=== PATIENT | female | born 1940 | race Caucasian/White ===

== ENCOUNTER 2016-09-13 10:59 | Inpatient (IN) | payer OTHER ==
[~2016-09-13] VITALS: Ht 170.2 cm; Wt 102.1 kg
--- NOTE | ~2016-09-13 | 2DMMODE ---
[facility] [address] [facility] [place] [address] 2 D/M-MODE ECHOCARDIOGRAM Name: YAQUELIN SORTO Room #: 212-P ADM IN M.R.#: [id number] Admission: 09/13/16 Attend Phys: Wayne Giles Discharge: Date of : 36 Date of Service: 09/14/16 1239 Report #: [id number] THIS REPORT FOR: //name// APPROVED REPORT Study performed: 09/14/2016 11:28:28 EXAM: Comprehensive 2D, Doppler, and color-flow Echocardiogram Patient Location: Echo lab Room #: 212 Blood Pressure: 104/49 mmHg HR: 97 bpm Rhythm: Atrial Fibrillation Other Information Study Quality: Adequate Indications Atrial Fibrillation Chest Pain Hx: Afib, HLP, HTN 2D Dimensions RVDd: 44.62 mm LVEF(%): 53.45 (>50%) IVSd: 11.57 (7-11mm) LVOT Diam: 22.35 (18-24mm) LVDd: 41.85 mm PWd: 12.05 (7-11mm) Ascending Ao: 33.91 (22-36mm) LVDs: 30.44 (25-40mm) Aortic Root: 32.94 mm Aguilera's LVEF: 53.45 % Volumes Left Atrial Volume (Systole) Single Plane 4CH: 44.62 mL Single Plane 2CH: 86.98 mL LA ESV Index: 35.00 mL/m2 Aortic Valve AoV Peak Lai.: 1.18 m/s AO Peak Gr.: 5.58 mmHg LVOT Max P.23 mmHg LVOT Max V: 0.75 m/s VALE Vmax: 2.48 cm2 [facility] [place] [address] 2 D/M-MODE ECHOCARDIOGRAM Name: YAQUELIN SORTO Room #: 212-P [facility] IN [facility].#: [id number] Admission: 09/13/16 Attend Phys: Wayne Giles Discharge: Date of : 36 Date of Service: 09/14/16 1239 Report #: [id number] Mitral Valve MV Decel. Time: 119.43 ms MV E Max Lai.: 0.92 m/s IVRT: 78.43 ms Pulmonary Valve PV Peak Lai.: 0.66 m/s PV Peak Gr.: 1.75 mmHg Tricuspid Valve TR Peak Lai.: 2.72 m/s RAP Estimate: 5.00 mmHg TR Peak Gr.: 29.74 mmHg RVSP: 35.00 mmHg Left Ventricle The left ventricle is normal size. There is normal LV segmental wall motion. Mild concentric left ventricular hypertrophy. Left ventricular systolic function is normal. LVEF is 55%. This study is not technically sufficient to allow evaluation of the LV diastolic function due to atrial fibrillation. Right Ventricle Right ventricle is mildly dilated. The right ventricular systolic function is normal. Atria Left atrium is dilated. Right atrium is dilated. Aortic Valve Aortic valve is calcified. Mild aortic regurgitation. There is no aortic valvular stenosis. Mitral Valve Mitral valve leaflets are normal. Moderate mitral regurgitation. No evidence of mitral valve stenosis. Tricuspid Valve The tricuspid valve is normal in structure. There is mild to moderate tricuspid regurgitation. The right atrial pressure is estimated at 5 mmHg. There is mild pulmonary hypertension with an estimated PAP of 35mmHg. Pulmonic Valve The pulmonary valve is normal in structure. Trace pulmonic regurgitation. Great Vessels The aortic root is normal in size. The ascending aorta is normal in [facility] [address] [place] [address] 2 D/M-MODE ECHOCARDIOGRAM Name: YAQUELIN SORTO Room #: 212-P [facility] IN ..#: [id number] Admission: 09/13/16 Attend Phys: Wayne Giles Discharge: Date of : 36 Date of Service: 09/14/16 1239 Report #: [id number] size. IVC is normal in size and collapses >50% with inspiration. Pericardium There is no pericardial effusion. <Conclusion> Left ventricular systolic function is normal. There is normal LV segmental wall motion. LVEF 55%. Both atria are dilated. Aortic valve is calcified, no stenosis. Mild aortic regurgitation. Mitral valve leaflets are normal. Moderate mitral regurgitation. Pulmonary artery pressure was approximatly 40mmHg. There is no pericardial effusion. <ELECTRONICALLY SIGNED> By: Sathya Herron MD, FACC 09/14/16 1239 1239 1239 Sathya Herron MD, FACC /INF
--- NOTE | ~2016-09-13 | EKG ---
[place] [address] [facility] [address] ELECTROCARDIOGRAM REPORT Name: YAQUELIN SORTO Room #: [facility]#: [id number] Admission: 09/13/16 Attend Phys: Discharge: Date of : 36 Report #: [id number] THIS REPORT FOR: //name// 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
--- NOTE | ~2016-09-13 | D ---
[facility] [place] [address] DISCHARGE SUMMARY Name: YAQUELIN SORTO Room #: 212-P ADM IN M.R.#: [id number] Admission: 09/13/16 Attend Phys: Costa Norton MD Discharge: Date of : 36 Report #: [id number] THIS REPORT FOR: //name// CC: Costa Banks DATE OF SERVICE: 09/15/2016 The patient was admitted to the hospital on 09/13/2016, discharged from the hospital on 09/15/2016. HISTORY OF PRESENT ILLNESS: The patient is a 76-year-old female who came to the hospital with chest pains. Please refer to the admission H and P for details. The patient has history of atrial fibrillation, and dyslipidemia. Her condition was stable on admission. HOSPITALIZATION COURSE: The patient was hospitalized at [facility] for chest pains. She had no evidence of acute coronary syndrome. Cardiac enzymes and EKG remained unremarkable. The patient had cardiac echocardiogram that was done on this admission. It showed normal ejection fraction 55%. Pulmonary artery pressure was 40. No major valvular abnormalities are reported. The patient's condition remained stable. Currently, she is completely asymptomatic. Her physical examination is acceptable as documented in the patient's chart. The patient will be discharged home on close outpatient followup. DISCHARGE DIAGNOSES: 1. Atypical chest pain, resolved. Negative workup for acute coronary syndrome, and unremarkable echocardiogram as detailed above. 2. Hypertension. 3. Dyslipidemia. 4. Bipolar disease. DISCHARGE MEDICATIONS: Xarelto 20 mg a day, Pravachol 20 mg a day, metoprolol ER 50 mg a day, lithium carbonate 300 mg a day. DISPOSITION: The patient is discharged home. FOLLOWUP PLAN: [facility] [address] [place] [address] DISCHARGE SUMMARY Name: YAQUELIN SORTO Room #: 212-P [facility] IN [facility]#: [id number] Admission: 09/13/16 Attend Phys: Costa Norton MD Discharge: Date of : 36 Report #: [id number] 1. Follow up with the primary care physician in 1-2 weeks. 2. Follow up with the claim processor as advised. By: [id number] Bryson Vance MD /nt
[~2016-09-13 10:59] MED LIST: COUMADIN 3 MG TA3 MG PO; ELIQUIS5 MG PO; LITHIUM CARBON300 M3 PO; PRAVACHOL40 MG PO; TOPROL XL25 MG PO
[2016-09-13 11:12] VITALS: BP 137/74
[2016-09-13] MEDS ORDERED: XARELTO20 MG PO (11:18)
[2016-09-13] MEDS ORDERED: PRAVACHOL20 MG PO (11:19)
[2016-09-13] MEDS ORDERED: METOPROLOL SUCC50 MG PO (11:19)
[2016-09-13] MEDS ORDERED: LITHIUM CARBON300 M7 PO (11:19)
[2016-09-13 12:36] LABS: ABSOLUTE NEUTROPHILS 5.6 thou/uL (1.4-8.2); BASOPHILS 0.7 % (0.0-2.0); HEMATOCRIT 44.1 % (37.0-47.0); HEMOGLOBIN 14.8 gm/dL (12.0-15.0); MCH 30.6 pg (26.0-34.0); MCHC 33.7 g/dL (28.0-37.0); MCV 90.9 fL (80.0-100.0); MONOCYTES 7.6 % (1.0-8.0); PLATELET COUNT 174 thou/uL (150-400); POLYS 71.7 % (36.0-66.0); RBC 4.85 mil/uL (4.20-5.00); RDW 13.9 % (10.5-14.5); WBC 7.8 thou/uL (4.0-11.0)
[2016-09-13 12:38] LABS: MANUAL DIFF NO
[2016-09-13 12:50] LABS: ANION GAP 11 mmol/L (7-16); BUN 15 mg/dL (7-18); CALCIUM 9.3 mg/dL (8.5-10.1); CHLORIDE 108 mmol/L (98-107); CO2 22 mmol/L (21-32); CREATININE 0.9 mg/dL (0.6-1.0); GLUCOSE 94 mg/dL (74-106); POTASSIUM 4.1 mmol/L (3.5-5.1); SODIUM 141 mmol/L (136-145)
[2016-09-13 13:02] LABS: NT-PRO BRAIN NAT PEPTIDE 83 pg/mL (<300); TROPONIN-I < 0.04 ng/mL (<0.04-0.07)
[2016-09-13 16:28] VITALS: BP 117/67
[2016-09-13 17:04] VITALS: BP 137/93
[2016-09-13 17:54] LABS: CHOLESTEROL 196 mg/dL (<200); HDL CHOLESTEROL 42 mg/dL (>40); LDL CHOLESTEROL 123 mg/dL (<100); TC:HDL 4.7 Ratio (Not establshd); TRIGLYCERIDE 156 mg/dL (<150); VLDL 31 mg/dL (<40)
[2016-09-13 19:44] VITALS: BP 104/56
[2016-09-13 23:44] VITALS: BP 125/58
[2016-09-14 02:28] LABS: ANION GAP 11 mmol/L (7-16); BUN 17 mg/dL (7-18); CALCIUM 8.7 mg/dL (8.5-10.1); CHLORIDE 108 mmol/L (98-107); CO2 23 mmol/L (21-32); CREATININE 0.8 mg/dL (0.6-1.0); GLUCOSE 103 mg/dL (74-106); SODIUM 142 mmol/L (136-145)
[2016-09-14 02:35] LABS: ALBUMIN 3.3 g/dL (3.4-5.0); ALKALINE PHOSPHATASE 78 U/L (46-116); SGOT 19 U/L (15-37); SGPT 20 U/L (30-65); TOTAL BILIRUBIN 0.7 mg/dL (<0.1-1.0); TOTAL PROTEIN 6.1 g/dL (6.4-8.2); TROPONIN-I < 0.04 ng/mL (<0.04-0.07)
[2016-09-14 04:31] VITALS: BP 129/83
[2016-09-14 07:05] VITALS: BP 104/49
[2016-09-14 08:15] VITALS: BP 104/49
[2016-09-14 12:45] VITALS: BP 134/63
[2016-09-14 16:05] VITALS: BP 127/73
[2016-09-14 19:51] VITALS: BP 121/68
[2016-09-15 04:42] VITALS: BP 143/81
[2016-09-15 07:35] VITALS: BP 146/76
[2016-09-15 08:31] VITALS: BP 146/76
[2016-09-15 11:30] VITALS: BP 146/76
[2016-09-15 11:36] VITALS: BP 146/76
== END 2016-09-15 12:30 | disposition home or self-care (01) | DRG 313 ==
LOC: ER 10:59 → EROBS 15:21 → 2N 15:21
PROVIDERS: Family Medicine; Nurse Practitioner; Nurse Practitioner Gerontology
DX: R07.89 Other chest pain (principal); E44.1 Mild protein-calorie malnutrition; I10 Essential (primary) hypertension; E78.5 Hyperlipidemia, unspecified; I48.0 Paroxysmal atrial fibrillation; I25.10 Atherosclerotic heart disease of native coronary artery without angina pectoris; F31.9 Bipolar disorder, unspecified; Z68.35 Body mass index [BMI] 35.0-35.9, adult; Z87.891 Personal history of nicotine dependence
CPT/HCPCS: 10081

== ENCOUNTER 2016-11-18 12:03 | Emergency (ER) | payer OTHER ==
[~2016-11-18] VITALS: Ht 170.2 cm; Wt 90.7 kg
[~2016-11-18 12:03] MED LIST changes: +LITHIUM CARBON300 M7 PO; +METOPROLOL SUCC50 MG PO; +PRAVACHOL20 MG PO; +XARELTO20 MG PO
== END 2016-11-18 13:36 | disposition home or self-care (01) ==
LOC: ER 12:03
DX: M19.071 Primary osteoarthritis, right ankle and foot (principal); F31.9 Bipolar disorder, unspecified; I10 Essential (primary) hypertension; E78.00 Pure hypercholesterolemia, unspecified; I48.91 Unspecified atrial fibrillation; F10.99 Alcohol use, unspecified with unspecified alcohol-induced disorder; Z79.01 Long term (current) use of anticoagulants; Z87.891 Personal history of nicotine dependence

== ENCOUNTER 2017-04-04 14:50 | Emergency (ER) | payer OTHER ==
[~2017-04-04] VITALS: Ht 170.2 cm; Wt 88.5 kg
== END 2017-04-04 16:14 | disposition home or self-care (01) ==
LOC: ER 14:50
DX: M79.671 Pain in right foot (principal); I48.91 Unspecified atrial fibrillation; F31.9 Bipolar disorder, unspecified; E78.5 Hyperlipidemia, unspecified; I10 Essential (primary) hypertension; M19.90 Unspecified osteoarthritis, unspecified site; Z87.891 Personal history of nicotine dependence

== ENCOUNTER → 2017-05-04 | Outpatient (CLI) | payer OTHER | LOC: MRI 10:12 | DX: M19.071 Primary osteoarthritis, right ankle and foot (principal) ==

== ENCOUNTER 2018-06-01 17:23 | Emergency (ER) | payer OTHER ==
[~2018-06-01] VITALS: Ht 172.7 cm; Wt 88.5 kg
[2018-06-01 17:24] VITALS: BP 130/69
[2018-06-01] MEDS ORDERED: LITHIUM CARBON300 M7 PO (18:02)
== END 2018-06-01 18:19 | disposition home or self-care (01) ==
LOC: ER 17:23
DX: F31.9 Bipolar disorder, unspecified (principal); Z76.0 Encounter for issue of repeat prescription; I48.91 Unspecified atrial fibrillation; E78.5 Hyperlipidemia, unspecified; I10 Essential (primary) hypertension; M19.90 Unspecified osteoarthritis, unspecified site; Z87.891 Personal history of nicotine dependence

== ENCOUNTER 2018-06-26 17:10 | Emergency (ER) | payer OTHER ==
[~2018-06-26] VITALS: Ht 172.7 cm; Wt 90.7 kg
[2018-06-26 17:32] LABS: URINE BILIRUBIN NEGATIVE (Negative); URINE BLOOD NEGATIVE (Negative); URINE CLARITY CLEAR; URINE COLOR YELLOW; URINE GLUCOSE-RANDOM* NEGATIVE (Negative); URINE KETONES TRACE (Negative); URINE NITRITE-REFLEX NEGATIVE (Negative); URINE PROTEIN (DIPSTICK) NEGATIVE (Negative); URINE SPECIFIC GRAVITY 1.015 (1.005-1.035); URINE UROBILINOGEN 0.2 E.U./dl (0.2-1.0)
[2018-06-26 17:35] LABS: URINE LEUKOCYTES-REFLEX 1+ (Negative)
[2018-06-26 17:43] LABS: BACTERIA-REFLEX 1-9 Few /HPF (None Seen); CASTS None Seen /LPF (None Seen); CRYSTALS None Seen /LPF (None Seen); SQUAMOUS 0-3 Few /LPF (0-3); URINE RBC None Seen /HPF (0-2); URINE WBC-REFLEX 6-15 Few /HPF (0-5)
[2018-06-26 19:51] LABS: ABSOLUTE NEUTROPHILS 6.3 thou/uL (1.4-8.2); EOSINOPHILS 3.2 % (0.0-3.0); HEMATOCRIT 44.9 % (37.0-47.0); HEMOGLOBIN 15.1 gm/dL (12.0-15.0); LYMPHOCYTES 17.5 % (24.0-44.0); MCHC 33.6 g/dL (28.0-37.0); MCV 92.3 fL (80.0-100.0); MONOCYTES 7.9 % (1.0-8.0); PLATELET COUNT 165 thou/uL (150-400); POLYS 70.4 % (36.0-66.0); RBC 4.87 mil/uL (4.20-5.00); RDW 13.6 % (10.5-14.5)
[2018-06-26] MEDS ORDERED: SINEMET 10-1001 EAC1 PO (19:52)
[2018-06-26 19:58] LABS: CALCIUM 9.8 mg/dL (8.5-10.1); CREATININE 0.9 mg/dL (0.6-1.0); POTASSIUM 4.4 mmol/L (3.5-5.1)
[2018-06-26] MEDS ORDERED: NORCO 5-325 TA1 EACH PO (20:55)
[2018-06-26] MEDS ORDERED: KEFLEX500 M1 PO (20:55)
[2018-06-26 21:17] VITALS: BP 149/90
== END 2018-06-26 21:17 | disposition home or self-care (01) ==
LOC: ER 17:10
PROVIDERS: Nurse Practitioner Family
DX: N39.0 Urinary tract infection, site not specified (principal); I48.91 Unspecified atrial fibrillation; F31.9 Bipolar disorder, unspecified; E78.5 Hyperlipidemia, unspecified; I10 Essential (primary) hypertension; M19.90 Unspecified osteoarthritis, unspecified site; Z87.891 Personal history of nicotine dependence

== ENCOUNTER 2020-09-01 14:24 | Inpatient (IN) | payer OTHER ==
[~2020-09-01] VITALS: Ht 172.7 cm; Wt 113.6 kg
--- NOTE | ~2020-09-01 | EMS ---
[address] [address] EMS Patient Care Report Name: YAQUELIN SORTO Room #: [facility] [place] Mock#: [id number] Admission: 09/01/20 Attend Phys: Discharge: Date of : 38 Report #: [id number] THIS REPORT FOR: //name// Report Transmitted: 09/01/2020 16:55 EMS Care Summary [facility] MED-ACT Incident [id number] @ 09/01/2020 13:41 Incident Location [address] [place] [address] Patient YAQUELIN SORTO Female, 80 Years 1940 Patient Address [address] [place] [address] Patient History None Reported, Patient Allergies No known allergies, Patient Medications Other, Chief Complaint Near syncope Disposition Transported No Lights/[place] Reason Falls Transported To [facility] Narrative Pt. states that she was watching TV when she had a sudden onset of feeling weak and near syncope. She crawled out to the [facility] of her apartment complex [address] [address] EMS Patient Care Report Name: YAQUELIN SORTO Room #: REG Nish#: [id number] Admission: 09/01/20 Attend Phys: Discharge: Date of : 36 Report #: [id number] and yelled for help. She states that this is the first time she has felt this way. She denies chest pain, dyspena, nausea, fever, diarrhea. She is unsure of her medical hx. When asked about a-fib she states "that sounds familiar". She also denies dementia hx or alcohol use. No other complaints noted. Arrived to find the pt. seated on the steps in the hallway. She appeared pale with a systolic BP of 95. she was placed in a semi-supine position where she felt better. T(x)- monitoring only. pt. wore a mask Outcome- BP increased with positioning. No other changes were noted in the pt's condition upon arrival at [place]. 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,BP: 95/72 M,PULSE: 120,RR: 16 R,SPO2: 96 Ox,ETCO2: ,BG: ,PAIN: 0,GCS: 15, 13:38,Call Received 13:38,Psap Call 13:41,Dispatched 13:42,En Route 13:50,On Scene 13:52,At Patient 13:56,BP: 110/71 M,PULSE: 77,RR: R,SPO2: 96 Ox,ETCO2: ,B,PAIN: ,GCS: , 14:00,12-Lead ECG,Response: UnchangedSucceeded, 14:00,BP: / M,PULSE: 138,RR: R,SPO2: 96 Ox,ETCO2: ,BG: ,PAIN: ,GCS: , 14:03,Saline Lock 8cc 20 ga Site: Forearm-Left,Response: UnchangedSucceeded, 14:08,Depart Scene [address] [address] EMS Patient Care Report Name: YAQUELIN SORTO Room #: [facility] [place] Mock#: [id number] Admission: 09/01/20 Attend Phys: Discharge: Date of : 36 Report #: [id number] 14:13,BP: 123/85 M,PULSE: 140,RR: R,SPO2: 96 Ox,ETCO2: ,BG: ,PAIN: ,GCS: , 14:19,At Destination 14:45,Call Closed Disclaimer v1.1 Copyright 2020 [employer] This EMS Care Summary contains data elements from the applicable legal record (which may be displayed differently). It is designed to provide pertinent information for the following purposes: continuity of care, clinical quality, and state data reporting. The complete legal record is available to ED staff and administrators of the receiving hospital in [employer]'s Patient Tracker. All data is provided "as is."
[~2020-09-01 14:24] MED LIST changes: +CARBIDOPA-LEVO1 EAC9 PO; +CRESTOR20 MG PO; +KEFLEX500 M1 PO; +NORCO 5-325 TA1 EACH PO; -PRAVACHOL20 MG PO
[2020-09-01 15:02] LABS: ABSOLUTE NEUTROPHILS 4.8 thou/uL (1.4-8.2); BASOPHILS 0.4 % (0.0-2.0); HEMATOCRIT 46.3 % (37.0-47.0); HEMOGLOBIN 15.5 gm/dL (12.0-15.0); LYMPHOCYTES 28.6 % (24.0-44.0); MCH 31.2 pg (26.0-34.0); MCHC 33.5 g/dL (28.0-37.0); MONOCYTES 6.9 % (1.0-8.0); PLATELET COUNT 194 thou/uL (150-400); POLYS 62.1 % (36.0-66.0); RBC 4.98 mil/uL (4.20-5.00); RDW 14.1 % (10.5-14.5); WBC 7.8 thou/uL (4.0-11.0)
[2020-09-01 15:07] LABS: ANION GAP 18 mmol/L (7-16); BUN 16 mg/dL (7-18); CALCIUM 9.4 mg/dL (8.5-10.1); CHLORIDE 105 mmol/L (98-107); CO2 17 mmol/L (21-32); GLUCOSE 79 mg/dL (74-106); POTASSIUM 3.7 mmol/L (3.5-5.1); SODIUM 140 mmol/L (136-145)
[2020-09-01 15:17] LABS: ALBUMIN 3.7 g/dL (3.4-5.0); DIRECT BILIRUBIN 0.2 mg/dL (<0.1-0.2); SGOT 27 U/L (15-37); SGPT 24 U/L (14-59); TOTAL BILIRUBIN 0.9 mg/dL (0.2-1.0); TOTAL PROTEIN 6.7 g/dL (6.4-8.2); TROPONIN-I <0.06 ng/mL (<0.06)
--- NOTE | 2020-09-01 16:46 | EKG ---
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: : 1940 Requested By: Violetta Sun Order Number: [id number] MD: Sathya Herron Measurements Intervals [place] Rate: 118 P: ME: QRS: -20 QRSD: 91 T: 52 QT: 309 QTc: 434 Interpretive Statements Atrial fibrillation Poor R wave progression Compared to ECG 02/17/2017 20:23:31 Ventricular premature complex(es) no longer present Electronically Signed On 09-01-2020 16:45:57 CDT by Sathya Herron [email or web address] <ELECTRONICALLY SIGNED> By: Sathya Herron MD, [facility] 09/01/20 1645 1454 1454 Sathya Herron MD, FACC /EPI
[2020-09-01 17:06] LABS: URINE BLOOD NEGATIVE (Negative); URINE CLARITY CLEAR; URINE COLOR YELLOW; URINE GLUCOSE-RANDOM* NEGATIVE (Negative); URINE KETONES 3+ (Negative); URINE LEUKOCYTES-REFLEX NEGATIVE (Negative); URINE NITRITE-REFLEX NEGATIVE (Negative); URINE PROTEIN (DIPSTICK) TRACE (Negative); URINE SPECIFIC GRAVITY >= 1.030 (1.005-1.035)
[2020-09-01 17:24] LABS: ICTOTEST (BILI CONFIRMATORY) Negative (Negative); URINE BILIRUBIN NEGATIVE (Negative)
[2020-09-01 17:25] LABS: URINE REDUCING SUBSTANCE NEGATIVE
[2020-09-01 19:40] VITALS: BP 113/68
[2020-09-01 20:02] VITALS: BP 120/68
[2020-09-01 20:21] VITALS: BP 108/58
[2020-09-01 20:25] VITALS: BP 108/58
[2020-09-01 23:14] LABS: CHOLESTEROL 109 mg/dL (<200); HDL CHOLESTEROL 38 mg/dL (>40); LDL CHOLESTEROL 53 mg/dL (<100); TC:HDL 2.9 Ratio (Not establshd); TRIGLYCERIDE 91 mg/dL (<150); VLDL 18 mg/dL (<40)
[2020-09-01 23:20] LABS: SERUM ASSESSMENT Clear
[2020-09-01 23:23] VITALS: BP 116/80
[2020-09-02 03:33] VITALS: BP 111/73
--- NOTE | 2020-09-02 05:36 | NUR ---
PT MAKING SLOW PROGRESS TOWARD GOALS. PT ARRIVED FROM ER VIA CART, PLACED IN ROOM 353. ADMISSION ASSESSMENTS COMPLETED. PT ARRIVED WITH CARDIZEM GTT OFF. HEART RATED NOTED TO BE 106 BPM UPON INITIAL ASSESSMENT. NOTED HEART RATE 80SS-100'S WHILE AT REST. HR DOES INCREASE TO 150'S WITH ACTIVITY, SUCH OOB TO THE BS. HAS DENIED ANY SOA, CHEST PAIN/PRESSURE, NAUSEA OR GI DISTRESS. ER RECORDS STATE PT REPORTED CHEST PRESSURE BUT PT DENIES SHE SAID THAT. 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 "I HAVE A FEW DRINKS ON SPECIAL OCCASSIONS. I PROBABLY HAVEN'T HAD ANY ALCOHOL IN 2-3 MONTHS."
[2020-09-02 07:17] VITALS: BP 112/80
[2020-09-02 11:29] VITALS: BP 113/67
--- NOTE | 2020-09-02 11:45 | NUR ---
ADMINISTER CARDEZIM DRIP PER ORDERS FROM DR WYMAN. PT HAS INCREASED HR WITH MOVEMENT AND IN BED. PT ALERT AND ORIENTED.
--- NOTE | 2020-09-02 14:43 | NUR ---
INITIAL ASSESSMENT: Received consult for discharge planning. SOCORRO reviewed chart and spoke with nursing and attending physician. Pt was admitted from home due to a syncopal episode at home. Cardiology consulted. SW met with pt at bedside. Introduced role of SOCORRO. Pt is alert/orientated. Pt reports that she lives alone in a ground level apt at [facility] in [place]. Prior to admission, pt was independent with ADLs. Pt does have a cane to use as needed. No steps to navigate. Pt states that her PCP is Dr. Carolina Banks and her grinder lap is Dr. Zamora. No hx of HH or post-acute placement. Pt reports that she has become weak at home and feels that she is not able to take care of herself at this time. SW discussed HH services or post-acute placement. Pt states she would be agreeable with either option. Pt's son, Roberto, is listed as a contact. Pt gave permission for SW to contact Roberto to provide update. SOCORRO spoke with Roberto via phone. Introduced role of SOCORRO. Roberto was unaware that pt was in the hospital. SOCORRO provided update. Pt with hx of bipolar disorder and ETOH use. Pt's son states that pt drinks ETOH occasionally. Pt's son lives locally. Pt has two dtrs who live out of state. Contact info for SOCORRO provided to oRberto. SOCORRO is following to assist as needed with discharge planning.
[2020-09-02 15:12] VITALS: BP 124/65
[2020-09-02 19:30] VITALS: BP 113/71
[2020-09-02 23:55] VITALS: BP 107/69
[2020-09-03 03:42] VITALS: BP 93/65
--- NOTE | 2020-09-03 05:29 | NUR ---
PT MAKING SLOW PROGRESS TOWARDS GOALS. PT IN AFIB THROUGHOUT THE NIGHT WITH RATES 90-100'S. NO COMPLAINTS OF SOA OR CHEST DISCOMFORT. PT HEART RATE ACCELERATES TO 150'S-170'S WITH ACTIVITY SUCH AMBULATING. THE ACCELERATED HEART RATE DOES RETURN TO HER BASELINE THE ACTIVITY CEASES. CONTINUE TO MONITOR.
[2020-09-03 07:34] VITALS: BP 129/79
[2020-09-03 08:39] LABS: HEMATOCRIT 45.7 % (37.0-47.0); MCH 30.6 pg (26.0-34.0); MCHC 32.8 g/dL (28.0-37.0); MCV 93.5 fL (80.0-100.0); RBC 4.89 mil/uL (4.20-5.00); RDW 13.9 % (10.5-14.5); WBC 6.8 thou/uL (4.0-11.0)
[2020-09-03 08:46] LABS: CALCIUM 9.7 mg/dL (8.5-10.1); MAGNESIUM 1.8 mg/dL (1.8-2.4); POTASSIUM 3.8 mmol/L (3.5-5.1)
--- NOTE | 2020-09-03 08:54 | NUR ---
PT NOT ABLE TO VERBALIZE MEDICATION HISTORY. PHARMACIST REQUESTED LITHIUM NOT BE GIVEN NO VERIFICATION/HISTORY ABLE TO BE OBTAINED.
[2020-09-03 11:34] VITALS: BP 128/65
--- NOTE | 2020-09-03 11:55 | NUR ---
ASSUMED CARE OF PT AT SHIFT CHANGE, PT ALERT AND ORIENTED. MILD FORGETFULNESS NOTED. PT ABLE TO FEED SELF. PUREWICK PLACED THIS MORNING PT HR CONTINUES TO INCREASE WITH ANY EXERTION OR MOVEMENT.
--- NOTE | 2020-09-03 15:34 | NUR ---
SW received voice message from pt's dtr, Cher ([phone]). Pt's dtr lives out of state and was requesting update. Psych consult ordered today. Post-acute placement is recommended. SW left voice message for pt's dtr, Cher. SW is following to assist as needed with discharge planning.
[2020-09-03 15:51] VITALS: BP 132/87
[2020-09-03] MEDS ORDERED: AZELASTINE137 MCG/0. NASAL (15:52)
[2020-09-03] MEDS ORDERED: UNICOMPLEX M TA1 TA1 PO (15:53)
[2020-09-03] MEDS ORDERED: AAA-MED REC COMPLETE PO (15:54)
[2020-09-03 20:00] VITALS: BP 101/64
[2020-09-04 03:25] VITALS: BP 104/56
--- NOTE | 2020-09-04 04:26 | NUR ---
Pt slept some ,woke up early and stated unable to sleep anymore. Assisted to reposition on bed. A fib with controlled rate. C/O pain on left FA IV site. Iv site pinkish and edematous was dc'd. New IV site on right FA placed. Purewick in place and voided large amount of urine. SCD's in place and bed alarm on.
[2020-09-04 07:39] VITALS: BP 96/68
--- NOTE | 2020-09-04 11:06 | 2DMMODE ---
[facility] [place] [address] 2 D/M-MODE ECHOCARDIOGRAM Name: YAQUELIN SORTO Room #: 353-P ADM IN M.R.#: [id number] Admission: 09/01/20 Attend Phys: Nick Austin MD Discharge: Date of : 38 Report #: [id number] THIS REPORT FOR: cc: Carolina Banks DNP, Mary E. DNP Santiago, Patrick MD [facility] ~ ADDENDUM APPROVED REPORT Study performed: 09/04/2020 09:31:49 EXAM: Comprehensive 2D, Doppler, and color-flow Echocardiogram Patient Location: Bedside Room #: 353 Status: routine BSA: 1.83 HR: 83 bpm BP: 96/68 mmHg Rhythm: Atrial Fibrillation Other Information Study Quality: Adequate Indications Atrial Fibrillation 2D Dimensions RVDd: 33.78 mm IVSd: 10.86 (7-11mm) LVOT Diam: 20.43 (18-24mm) LVDd: 49.79 mm PWd: 9.83 (7-11mm) LVDs: 39.78 (25-40mm) Left Atrium: 43.79 (27-40mm) Aortic Root: 31.90 mm Volumes Left Atrial Volume (Systole) Single Plane 4CH: 80.02 mL Single Plane 2CH: 81.75 mL LA ESV Index: 47.00 mL/m2 Aortic Valve AoV Peak Lai.: 1.04 m/s AO Peak Gr.: 4.32 mmHg LVOT Max P.33 mmHg LVOT Max V: 0.58 m/s VALE Vmax: 1.82 cm2 [facility] [address] [place] [address] 2 D/M-MODE ECHOCARDIOGRAM Name: YAQUELIN SORTO Room #: 353-P ADM IN Nish#: [id number] Admission: 09/01/20 Attend Phys: Nick Austin MD Discharge: Date of : 36 Report #: [id number] Mitral Valve MV Decel. Time: 168.53 ms MV E Max Lai.: 0.62 m/s Pulmonary Valve PV Peak Lai.: 0.68 m/s PV Peak Gr.: 1.83 mmHg Tricuspid Valve TR Peak Lai.: 2.03 m/s TR Peak Gr.: 17.00 mmHg Left Ventricle The left ventricle is normal size. There is normal left ventricular wall thickness. Left ventricular systolic function is moderately decreased. LVEF is 35-40%. This study is not technically sufficient to allow evaluation of the LV diastolic function due to atrial fibrillation. Right Ventricle The right ventricle is normal size. Right ventricle is hypokinetic. Atria Left atrium is moderately dilated. The right atrium size is normal. Aortic Valve The aortic valve is normal in structure; leaflets are moderately sclerotic. Mild aortic regurgitation. There is no aortic valvular stenosis. Mitral Valve The mitral valve is normal in structure. Mild mitral regurgitation. Tricuspid Valve The tricuspid valve is normal in structure. Mild to moderate tricuspid regurgitation. Estimated PAP is 17mmHg plus the right atrial pressure. Pulmonic Valve The pulmonary valve is normal in structure. There is no pulmonic valvular regurgitation. Great Vessels [facility] [address] [place] [address] 2 D/M-MODE ECHOCARDIOGRAM Name: YAQUELIN SORTO Room #: 353-P [facility] IN [place].#: [id number] Admission: 09/01/20 Attend Phys: Nick Austin MD Discharge: Date of : 36 Report #: [id number] The aortic root is normal in size. Ascending aorta is not well visualized. IVC is not visualized. Pericardium There is no pericardial effusion. <Conclusion> Normal left ventricle size/wall thickness Severe anteroseptal wall hypokineses and mild to moderate inferior wall hypokinesis Endocardial calcification in the mid to distal anterior wall Ejection fraction 35-40% Normal right ventricular size/mild to hypokinesis Moderate left atrial enlargement Color-flow Doppler studies performed of the aortic/mitral/tricuspid/pulmonary valve Aortic valve mild calcification without stenosis Mild aortic valve insufficiency Mild mitral valve insufficiency Mild to moderate tricuspid valve insufficiency Pulmonary systolic pressure estimated at 17 mmHg No pericardial effusion Normal aortic root size. Study performed in atrial fibrillation <ELECTRONICALLY SIGNED> By: Zan Chanel MD, [facility] 09/04/20 1106 1106 05 Zan Chanel MD, FACC /INF
[2020-09-04 11:09] VITALS: BP 110/66
[2020-09-04 15:23] VITALS: BP 100/66
--- NOTE | 2020-09-04 16:34 | NUR ---
SW reviewed chart and spoke with nursing and attending physician. Pt is progressing towards goals for discharge. Psych consulted and is following. SOCORRO spoke with pt's dtr, Cher, via phone to provide update and discuss discharge plan. Pt's children are going to discuss SNF placement this evening. SW explained process for needing insurance auth for placement. Pt's dtr to send medical records to SW to place on pt's chart for physicians to review. SW is following to assist as needed with discharge planning.
[2020-09-04 19:05] VITALS: BP 105/60
[2020-09-05 04:15] VITALS: BP 96/58
--- NOTE | 2020-09-05 04:24 | NUR ---
Pt. had a hard time getting comfortable on bed to sleep initially then once she got situated and assisted to reposition she finally slept good. A fib with controlled rate. External cath in place. Making some progress towards care plan goals.
[2020-09-05 07:19] VITALS: BP 100/47
[2020-09-05 11:09] VITALS: BP 112/64
--- NOTE | 2020-09-05 11:53 | NUR ---
SW reviewed chart and spoke with nursing and attending physician. Pt is progressing towards goals for discharge. Psych consult pending at this time. Pt will need post-acute placement. SW received message from pt's dtr, Cher, stating that she and her siblings are reviewing the in-network SNF list and will notify SW of their preference. SW will fax referral once a facility has been chosen. Will need insurance authorization for post-acute placement. No weekend discharge anticipated. SW is following to assist as needed with discharge planning.
[2020-09-05 15:23] VITALS: BP 102/60
[2020-09-05 19:50] VITALS: BP 107/66
[2020-09-06 04:27] VITALS: BP 101/58
--- NOTE | 2020-09-06 05:54 | NUR ---
insisted that she did not get fed any dinner at bedtime. offered her a snack which she ate quickly. then insisted that she was still hungry so i gave her a sandwhich box lunch and a soda. about 30 minutes later wanted some [place] for indigestion/ too full feeling. gave dose and then she vomited about 15 minutes later. she felt too full for about two hours and then difted off to sleep. she is unsteady when ambulating, right foot is weak/stiff. careplan reviewed. discharge plans in place
[2020-09-06 07:27] VITALS: BP 86/57
[2020-09-06 16:16] VITALS: BP 103/58
--- NOTE | 2020-09-06 18:28 | NUR ---
ASSUMED PATIENT CARE AT 0700. A/O X4. DENIES PAIN. NO DISTRESS NOTED. SLOWLY TOWARDS POC GOALS.
[2020-09-06 19:15] VITALS: BP 104/51
[2020-09-07 03:40] VITALS: BP 101/61
--- NOTE | 2020-09-07 04:10 | NUR ---
Patient making progress towards outcome goals. Vital signs and rhythm stable. High fall risks, fall precautions in place.
[2020-09-07 07:10] VITALS: BP 93/61
[2020-09-07 15:09] VITALS: BP 100/64
--- NOTE | 2020-09-07 17:54 | NUR ---
RN ASSUMED PT'S CARE AT 0700AM, PT IS A&OX2 ( PERSON AND PLACE), PT CAN FOLLOW SOME COMMANDS, PT IS CONFUSED AT TIME, PT 'S VS ARE STABLE, PT GETS UP TO CHAIR WITH ASSIST. PT DENIES PAIN AND SOB AT THIS TIME.
[2020-09-07 20:02] VITALS: BP 104/70
[2020-09-08 04:45] VITALS: BP 123/69
--- NOTE | 2020-09-08 05:21 | NUR ---
NEEDS ASSIST TO RESTROOM WITH DIRECTIVES OF WHEN TO STAND,PIVOT, ECT. SHE HAS DIFFICULTY REMEMBERING THE NEXT ACTION TO TAKE. INSTRUCTED TO HER LIFT HER FEET WHEN WALKING SHE TENDS TO DRAG HER RT FOOT. SHE STATED THAT HER NIEGHBORS ARE NO HELP IF SOMETHING GOES WRONG. SHE MADE IT SOUND IF SHE IS FEARFUL OF WHAT MIGHT HAPPEN IF SHE CONTINUES TO LIVE IN HER CURRENT SITUATION.
[2020-09-08 06:30] LABS: HEMATOCRIT 42.5 % (37.0-47.0); HEMOGLOBIN 14.2 gm/dL (12.0-15.0); MCH 30.9 pg (26.0-34.0); MCHC 33.5 g/dL (28.0-37.0); MCV 92.1 fL (80.0-100.0); RBC 4.62 mil/uL (4.20-5.00); RDW 14.3 % (10.5-14.5); WBC 5.5 thou/uL (4.0-11.0)
[2020-09-08 06:48] LABS: CREATININE 0.7 mg/dL (0.6-1.0)
[2020-09-08 07:16] VITALS: BP 103/81
--- NOTE | 2020-09-08 10:15 | NUR ---
Assess due to RD consulted. Admit with weakness, confusion, afib. Advanced age 80. Hx Bipolar, etoh, parkinsons. Has not been eating well past several days 10-50% most meals. Had several complaints about food choices. ST has assessed and earlier recommended [facility] altered chopped diet due to prolonged mastication. Spoke w/ ST this am, and approval for no diet modifications and honor food choices. Physician has ordered ensure max today which pt agrees to trial. Pt reports usual wt around 180 lb (has wts of 145 vs 255 lb recorded) so need clarification. Low nutrition risk with appropriate nutrition interventions in place.
--- NOTE | 2020-09-08 11:20 | NUR ---
SW reviewed chart and spoke with nursing and attending physician. Pt is progressing towards goals for discharge to post-acute care. SW received message from pt's dtr, Cher, stating the family would like a SNF referral to be sent to [facility] for review. Pt's son/DPOA, Roberto, to tour the facility this morning. SOCORRO faxed referral to [facility] and discussed with [facility] at [facility]. SOCORRO also faxed to [facility] for insurance auth. Tour completed and family agreeable with going to [facility], who has submitted for insurance authorization today. Family requests conference call meeting with attending physician today at 1200. Attending physician to call pt's dtr, Cher, who will then add her siblings to the call. SOCORRO is following to assist as needed with discharge planning.
--- NOTE | 2020-09-08 16:30 | NUR ---
RN ASSUMED PT'S CARE AT 0700AM, PT IS A&OX2 ( PERSON AND PLACE), PT CAN FOLLOW SOME COMMANDS, RN HAS REPORTED DR ABOUT PT'S POOR EATING ANG DRINKING, NEW ORDER RECEIVED, PT GETS UP CHAIR WITH ASSIST, PT DENIES PAIN AND SOB AT THIS TIME.
[2020-09-08 16:48] VITALS: BP 120/71
[2020-09-08 19:30] VITALS: BP 121/66
[2020-09-09 04:43] VITALS: BP 117/63
[2020-09-09 07:21] VITALS: BP 114/70
[2020-09-09] MEDS ORDERED: ABILIFY 2 MG2 M1 PO (11:42)
--- NOTE | 2020-09-09 14:11 | NUR ---
DISCHARGE NOTE: SOCORRO reviewed chart and spoke with nursing and attending physician. Pt is medically stable for discharge to [facility] today. SOCORRO received call from [facility] stating that SNF has been authorized. Auth # [id number] provided. SOCORRO faxed finalized discharge orders/summary to [facility] and notified [facility] in admission of authorization and discharge orders. SOCORRO notified pt's nurse and pt's dtrCher. Awaiting call back from [facility] regarding transportation arrangements. Chart copy requested. SOCORRO is following to finalize discharge.
[2020-09-09 15:21] VITALS: BP 104/55
--- NOTE | 2020-09-09 17:37 | NUR ---
ASSUMED PATIENT CARE AT 0700. A/O X3. FORGETFUL. DENIES PAIN. UP WITH ASSITED TO [employer]. SLOWLY TOWARDS POC GOALS.
[2020-09-09 20:27] VITALS: BP 106/60
[2020-09-10 05:34] VITALS: BP 113/47
--- NOTE | 2020-09-10 06:30 | NUR ---
VSS OVERNIGHT. HOURLY ROUNDING. EXTERNAL CATH IN PLACE. TELE MONITOR SHOWS PT RUNNING AFIB. PT COULD DC TODAY IF BED OPENS AT [facility]. CALL LIGHT WITHIN REACH.
[2020-09-10 08:00] VITALS: BP 111/61
[2020-09-10 09:00] VITALS: BP 111/61
[2020-09-10 09:20] VITALS: BP 111/61
--- NOTE | 2020-09-10 12:14 | NUR ---
Pt dcing to SNF at [facility] today. Nursing to call report. Pt aware and agreeable. She has clothing for dc today at bedside. Chart copy in progress and dc orders and 124c faxed to [facility] admissions. They will arrange for a w/c van for early afternoon. Insurance auth in place. Pt to be skilled for therapy. Son Roberto aware of dc today and agreeable.
--- NOTE | 2020-09-10 16:10 | NUR ---
RN ASSUMED PT'S CARE AT 0700AM,PT IS A&OX2 ( PERSON AND PLACE), PT CAN FOLLOW COMMANDS, PT IS CONFUSED AT TIME, PT DOES NOT HAVE SOB AND DIZZINESS , PT'S VS ARE STABLE, RN RECEIVED PRDER TO DC PT TO SNF, PT WAS GOING TO SNF AT 1540PM BY W/C , RN HAS GIVING REPORT.
== END 2020-09-10 15:49 | DRG 308 ==
LOC: ER 14:24 → EROBS 19:27 → 3W 19:27
PROVIDERS: Emergency Medicine; Nurse Practitioner Family; ADMIT Internal Medicine; ATTEND Internal Medicine
DX: I48.21 Permanent atrial fibrillation (principal); R65.11 Systemic inflammatory response syndrome (SIRS) of non-infectious origin with acute organ dysfunction; N39.0 Urinary tract infection, site not specified; I42.8 Other cardiomyopathies; R53.1 Weakness; Z20.822 Contact with and (suspected) exposure to COVID-19; E78.5 Hyperlipidemia, unspecified; F31.9 Bipolar disorder, unspecified; I10 Essential (primary) hypertension; M19.90 Unspecified osteoarthritis, unspecified site; R82.4 Acetonuria; R53.81 Other malaise; G20 Parkinson's disease; Z60.2 Problems related to living alone; F02.80 Dementia in other diseases classified elsewhere, unspecified severity, without behavioral disturbance, psychotic disturbance, mood disturbance, and anxiety; I34.0 Nonrheumatic mitral (valve) insufficiency; H10.9 Unspecified conjunctivitis; Z87.891 Personal history of nicotine dependence; Z91.14 Patient's other noncompliance with medication regimen; Z79.899 Other long term (current) drug therapy
CPT/HCPCS: 10879